=== PATIENT | female | born 1965 | race Caucasian/White ===

== ENCOUNTER → 2016-09-11 | Outpatient (CLI) | payer MEDICARE ==
[~2016-09-11] MED LIST: AMBIEN10 MG PO; ATIVAN1 MG PO; BACLOFEN20 MG PO; BUSPAR5 MG PO; CARISOPRODOL350 MG PO; CELEXA20 M1 PO; CYMBALTA60 MG PO; GENICIN500 MG PO; LASIX40 MG PO; NEURONTIN100 MG PO; NORCO 325-5 MG1 TAB PO; PRILOSEC20 MG PO; SOMA350 MG PO; SUPER B COMPLE150 MG PO; TRICOR48 MG PO; VITAMIN B COMP1 EACH PO; VITAMIN B122500 MCG PO; VITAMIN C1000 MG PO; VITAMIN D2000 UNI1 PO; VITAMIN D32000 UNIT PO; ZETIA10 MG PO; [UNRECOGNIZED DRUG - OTHER] PO
== END | disposition short-term general hospital (02) ==
LOC: CLPAIN 09:51
DX: M54.5 Low back pain (principal)

== ENCOUNTER 2016-09-13 11:45 | Emergency (ER) | payer MEDICARE, OTHER ==
[~2016-09-13] VITALS: Ht 165.1 cm; Wt 93.4 kg
[~2016-09-13 11:45] MED LIST changes: -BACLOFEN20 MG PO; -CYMBALTA60 MG PO; -GENICIN500 MG PO; -PRILOSEC20 MG PO; -VITAMIN B COMP1 EACH PO; -VITAMIN B122500 MCG PO; -VITAMIN D2000 UNI1 PO; -[UNRECOGNIZED DRUG - OTHER] PO
[2016-09-13] MEDS ORDERED: CYMBALTA60 MG PO (12:39)
[2016-09-13] MEDS ORDERED: PRILOSEC20 MG PO (12:41)
[2016-09-13] MEDS ORDERED: BACLOFEN20 MG PO (12:42)
[2016-09-13] MEDS ORDERED: VITAMIN B COMP1 EACH PO (12:44)
[2016-09-13] MEDS ORDERED: VITAMIN D2000 UNI1 PO (12:45)
[2016-09-13] MEDS ORDERED: VITAMIN C1000 MG PO (12:45)
[2016-09-13] MEDS ORDERED: GENICIN500 MG PO (12:46)
[2016-09-13] MEDS ORDERED: VITAMIN B122500 MCG PO (12:46)
[2016-09-13] MEDS ORDERED: [UNRECOGNIZED DRUG - OTHER] PO (12:47)
== END 2016-09-13 14:17 | disposition short-term general hospital (02) ==
LOC: ER 11:45
DX: R42 Dizziness and giddiness (principal); R11.2 Nausea with vomiting, unspecified; Z79.899 Other long term (current) drug therapy; Z79.891 Long term (current) use of opiate analgesic
CPT/HCPCS: A9150; J1885; J2405